=== PATIENT | male | born 1990 | race Caucasian/White ===

== ENCOUNTER 2023-08-20 16:58 | Emergency (ER) | payer SELFPAY ==
[~2023-08-20] VITALS: Ht 175.3 cm; Wt 69.0 kg
[2023-08-20 17:01] VITALS: O2SAT 96
[2023-08-20] MEDS: LEVETIRACETAM 500MG PREMIX 100 ML IV ONE (18:14)
[2023-08-20 18:18] VITALS: BP 129/73; PULSE 71; RESP 14; TEMP 96.4
[2023-08-20 19:09] LABS: ALANINE AMINOTRANSFERASE 29 IU/L (10-49); ALBUMIN 4.7 g/dL (3.2-4.8); ASPARTATE AMINOTRANSFERASE 65 IU/L (<34); BILIRUBIN TOTAL 0.4 mg/dL (0.1-1.0); CALCIUM 7.9 mg/dL (8.7-10.4); CARBON DIOXIDE 28 mEq/L (21-32); CHLORIDE 105 mEq/L (98-107); CREATININE 0.7 mg/dL (0.6-1.3); GLUCOSE 85 mg/dL (70-105); POTASSIUM 4.3 mEq/L (3.5-5.1); PROTEIN TOTAL 7.7 g/dL (6.0-8.3); SODIUM 139 mEq/L (136-145); UREA NITROGEN BLOOD 12 mg/dL (9-23)
[2023-08-20] MEDS ORDERED: ACETAMINOPHEN 325MG TABLET PO ONE (19:45)
[2023-08-20] MEDS ORDERED: LEVE1000 MT (19:46)
[2023-08-20 20:09] LABS: BASOPHILS % 0.5 % (0.0-2.0); EOSINOPHILS % 1.2 % (0.0-5.0); HEMATOCRIT. 38.9 % (42.0-52.0); HEMOGLOBIN. 13.2 g/dL (14.0-18.0); LYMPHOCYTES % 14.6 % (20.0-50.0); MEAN CORPUSCULAR HEMOGLOBIN 30.1 pg (28.0-32.0); MEAN CORPUSCULAR HGB CONC 33.9 g/dL (31.0-37.0); MEAN CORPUSCULAR VOLUME 88.7 fL (80.0-94.0); MEAN PLATELET VOLUME 7.4 fl (7.4-10.4); MONOCYTES % 7.4 % (2.0-8.0); NEUTROPHILS % 76.3 % (40.0-76.0); PLATELET 173 x1000/uL (130-400); RED BLOOD CELL COUNT 4.39 mill/uL (4.7-6.1); RED CELL DISTRIBUTION WIDTH 14.4 % (11.6-14.6); WHITE BLOOD COUNT 7.7 x1000/uL (4.5-11.0)
== END 2023-08-20 19:00 ==
LOC: ER 16:58
DX: R56.9 Unspecified convulsions (principal); Z85.9 Personal history of malignant neoplasm, unspecified
CPT/HCPCS: 99284; 96365; 80053; 85025; 36415; J1953

== ENCOUNTER 2023-09-20 20:17 | Emergency (ER) | payer BC, MEDICAID ==
[~2023-09-20] VITALS: Ht 182.9 cm; Wt 65.0 kg
[~2023-09-20 20:17] MED LIST: LEVE1000 MT
[2023-09-20 20:19] VITALS: O2SAT 97
[2023-09-20 20:47] VITALS: TEMP 98.2
[2023-09-20] MEDS: ACETAMINOPHEN 325MG TABLET PO STA (20:47)
[2023-09-20] MEDS: LEVETIRACETAM 500MG PREMIX 100 ML IV ONE (20:47)
[2023-09-20 21:28] LABS: BASOPHILS % 0.3 % (0.0-2.0); EOSINOPHILS % 1.3 % (0.0-5.0); HEMATOCRIT. 41.9 % (42.0-52.0); HEMOGLOBIN. 14.4 g/dL (14.0-18.0); LYMPHOCYTES % 18.3 % (20.0-50.0); MEAN CORPUSCULAR HEMOGLOBIN 30.9 pg (28.0-32.0); MEAN CORPUSCULAR HGB CONC 34.2 g/dL (31.0-37.0); MEAN CORPUSCULAR VOLUME 90.3 fL (80.0-94.0); MEAN PLATELET VOLUME 7.3 fl (7.4-10.4); MONOCYTES % 7.3 % (2.0-8.0); NEUTROPHILS % 72.8 % (40.0-76.0); PLATELET 243 x1000/uL (130-400); RED BLOOD CELL COUNT 4.64 mill/uL (4.7-6.1); RED CELL DISTRIBUTION WIDTH 13.8 % (11.6-14.6); WHITE BLOOD COUNT 7.6 x1000/uL (4.5-11.0)
[2023-09-20 21:45] LABS: ALANINE AMINOTRANSFERASE 34 IU/L (10-49); ALBUMIN 4.6 g/dL (3.2-4.8); ASPARTATE AMINOTRANSFERASE 36 IU/L (<34); BILIRUBIN TOTAL 0.4 mg/dL (0.1-1.0); CALCIUM 8.6 mg/dL (8.7-10.4); CARBON DIOXIDE 23 mEq/L (21-32); CHLORIDE 106 mEq/L (98-107); CREATININE 0.9 mg/dL (0.6-1.3); GLUCOSE 94 mg/dL (70-105); POTASSIUM 3.9 mEq/L (3.5-5.1); PROTEIN TOTAL 8.4 g/dL (6.0-8.3); SODIUM 137 mEq/L (136-145); UREA NITROGEN BLOOD 9 mg/dL (9-23)
[2023-09-20 22:20] LABS: *AMPHETAMINES SCREEN URINE NEGATIVE (NEGATIVE); *BARBITURATES SCREEN URINE NEGATIVE (NEGATIVE); *BENZODIAZEPINES SCREEN URINE PRESUMPTIVE POSITIVE (NEGATIVE); *COCAINE SCREEN URINE NEGATIVE (NEGATIVE); CANNABINOID URINE SCREEN PRESUMPTIVE POSITIVE (NEGATIVE); ECSTASY MDMA SCREEN URINE NEGATIVE (NEGATIVE); METHADONE URINE SCREEN Pos (NEGATIVE); OPIATES URINE SCREEN NEGATIVE (NEGATIVE); PHENCYCLIDINE URINE SCREEN NEGATIVE (NEGATIVE)
[2023-09-20] MEDS ORDERED: NALO4SPR BOTHNSTRLS (22:22)
[2023-09-20 22:42] VITALS: BP 102/61; PULSE 90; RESP 12
== END 2023-09-20 22:51 | disposition home or self-care (01) ==
LOC: ER 20:17
DX: R56.9 Unspecified convulsions (principal); Z85.9 Personal history of malignant neoplasm, unspecified
CPT/HCPCS: 99285; 96365; 70450; 80053; 80305; 82962; 85025; 36415; J1953

== ENCOUNTER 2024-01-28 19:28 | Emergency (ER) | payer BC, MEDICAID ==
[~2024-01-28] VITALS: Ht 185.4 cm; Wt 68.0 kg
[~2024-01-28 19:28] MED LIST changes: +NALO4SPR BOTHNSTRLS
[2024-01-28 19:36] VITALS: TEMP 97.7; O2SAT 98
[2024-01-28] MEDS ORDERED: MAGNESIUM/ALUMINUM HYDROXIDE/SIMETHICONE 30ML UDC PO STA (19:53)
[2024-01-28] MEDS ORDERED: DICYCLOMINE 10 MG/5 ML ORAL SYR PO STA (19:53)
[2024-01-28 20:20] LABS: BASOPHILS % 0.2 % (0.0-2.0); EOSINOPHILS % 1.2 % (0.0-5.0); HEMATOCRIT. 41.2 % (42.0-52.0); HEMOGLOBIN. 13.9 g/dL (14.0-18.0); MEAN CORPUSCULAR HEMOGLOBIN 30.3 pg (28.0-32.0); MEAN CORPUSCULAR HGB CONC 33.7 g/dL (31.0-37.0); MEAN PLATELET VOLUME 7.4 fl (7.4-10.4); MONOCYTES % 4.9 % (2.0-8.0); NEUTROPHILS % 81.7 % (40.0-76.0); PLATELET 139 x1000/uL (130-400); RED BLOOD CELL COUNT 4.58 mill/uL (4.7-6.1); RED CELL DISTRIBUTION WIDTH 13.8 % (11.6-14.6); WHITE BLOOD COUNT 6.8 x1000/uL (4.5-11.0)
[2024-01-28 20:23] LABS: CLARITY URINE CLOUDY (CLEAR); COLOR URINE DARK YELLOW (YELLOW); GLUCOSE URINE NEGATIVE (NEGATIVE); KETONES URINE 1+ (NEGATIVE); LEUKOCYTE ESTERASE URINE TRACE (NEGATIVE); NITRITE URINE NEGATIVE (NEGATIVE); OCCULT BLOOD URINE NEGATIVE (NEGATIVE); PH URINE 8.5 (4.5-8.0); PROTEIN URINE TRACE (NEGATIVE); SPECIFIC GRAVITY URINE 1.022 (1.005-1.030)
[2024-01-28 20:29] LABS: CHLORIDE 103 mEq/L (98-107); POTASSIUM 3.8 mEq/L (3.5-5.1); SODIUM 139 mEq/L (136-145)
[2024-01-28 20:30] LABS: CALCIUM 9.2 mg/dL (8.7-10.4); CARBON DIOXIDE 29 mEq/L (21-32)
[2024-01-28 20:35] LABS: CREATININE 0.7 mg/dL (0.6-1.3); GLUCOSE 118 mg/dL (70-105); UREA NITROGEN BLOOD 9 mg/dL (9-23)
[2024-01-28 20:37] LABS: ALANINE AMINOTRANSFERASE 205 IU/L (10-49); ALBUMIN 4.6 g/dL (3.2-4.8); ASPARTATE AMINOTRANSFERASE 275 IU/L (<34); BILIRUBIN DIRECT 0.5 mg/dL (<=3.0); BILIRUBIN TOTAL 1.4 mg/dL (0.1-1.0); PROTEIN TOTAL 7.7 g/dL (6.0-8.3)
[2024-01-28 20:38] LABS: PROTHROMBIN TIME 11.6 sec (9.6-11.0)
[2024-01-28 20:47] LABS: ETHANOL BLOOD < 10 mg/dL (<10)
[2024-01-28] MEDS: HALOPERIDOL LACTATE 5MG/ML VIAL IM SCH (20:58)
[2024-01-28] MEDS: ONDANSETRON HCL 4MG/2ML INJ IV STA (20:59)
[2024-01-28] MEDS: SODIUM CHLORIDE 0.9% 1,000 ML IV ONE (21:00)
[2024-01-28] MEDS: FAMOTIDINE 20MG/2ML VIAL IV STA (21:00)
[2024-01-28] MEDS: KETOROLAC 30MG/ML VIAL IV STA (21:00)
[2024-01-28 21:10] LABS: BACTERIA URINE 2+; RBC URINE NONE SEEN /hpf (0-2)
[2024-01-28] MEDS: HALOPERIDOL LACTATE 5MG/ML VIAL IM ONE (21:25)
[2024-01-28] MEDS ORDERED: MAGNESIUM/ALUMINUM HYDROXIDE/SIMETHICONE 30ML UDC PO NR (21:45)
[2024-01-28] MEDS ORDERED: FAMO-135 MT (22:25)
[2024-01-28] MEDS ORDERED: ONDA-239 PO (22:25)
[2024-01-28] MEDS ORDERED: CEFTRIAXONE 2GM/50ML 50 ML IV ONE (22:30)
[2024-01-28 23:10] VITALS: BP 104/65; PULSE 68; RESP 12; O2SAT 99
== END 2024-01-28 23:05 | disposition home or self-care (01) ==
LOC: ER 19:28
DX: K29.70 Gastritis, unspecified, without bleeding (principal); R11.10 Vomiting, unspecified; R56.9 Unspecified convulsions; Z85.9 Personal history of malignant neoplasm, unspecified
CPT/HCPCS: 80076; 80048; 81003; 80320; 83690; 85025; 85610; 36415; 96361; 96372; 96374; 96375; 99284; J0696; J3490; J1630; J1885; J2405; J7030; G0480

== ENCOUNTER 2024-04-21 13:47 | Emergency (ER) | payer MEDICAID ==
[~2024-04-21] VITALS: Ht 185.4 cm; Wt 65.0 kg
[~2024-04-21 13:47] MED LIST changes: +FAMO-135 MT; +ONDA-239 PO
[2024-04-21 13:49] VITALS: BP 120/69; PULSE 78; RESP 18; TEMP 98.6; O2SAT 96
[2024-04-21] MEDS: ONDANSETRON 4MG ODT PO STA (13:53)
[2024-04-21 14:24] LABS: BASOPHILS % 0.7 % (0.0-2.0); EOSINOPHILS % 2.7 % (0.0-5.0); HEMOGLOBIN. 14.1 g/dL (14.0-18.0); LYMPHOCYTES % 29.5 % (20.0-50.0); MEAN CORPUSCULAR HEMOGLOBIN 31.2 pg (28.0-32.0); MEAN CORPUSCULAR HGB CONC 33.6 g/dL (31.0-37.0); MEAN CORPUSCULAR VOLUME 92.8 fL (80.0-94.0); MEAN PLATELET VOLUME 7.2 fl (7.4-10.4); MONOCYTES % 6.5 % (2.0-8.0); NEUTROPHILS % 60.6 % (40.0-76.0); PLATELET 159 x1000/uL (130-400); RED BLOOD CELL COUNT 4.52 mill/uL (4.7-6.1); WHITE BLOOD COUNT 4.4 x1000/uL (4.5-11.0)
[2024-04-21 14:29] LABS: CARBON DIOXIDE 30 mEq/L (21-32); CHLORIDE 107 mEq/L (98-107); POTASSIUM 3.9 mEq/L (3.5-5.1); SODIUM 144 mEq/L (136-145)
[2024-04-21 14:30] LABS: CALCIUM 8.6 mg/dL (8.7-10.4)
[2024-04-21 14:33] LABS: INR 0.9; PROTHROMBIN TIME 10.6 sec (9.6-11.0)
[2024-04-21 14:35] LABS: CREATININE 0.7 mg/dL (0.6-1.3); GLUCOSE 91 mg/dL (70-105); UREA NITROGEN BLOOD 7 mg/dL (9-23)
[2024-04-21 14:44] LABS: ETHANOL BLOOD 300 mg/dL (<10)
== END 2024-04-21 15:33 | disposition left against medical advice (07) ==
LOC: ER 13:47
DX: F10.129 Alcohol abuse with intoxication, unspecified (principal); Z85.9 Personal history of malignant neoplasm, unspecified; Z79.899 Other long term (current) drug therapy; Y90.8 Blood alcohol level of 240 mg/100 ml or more
CPT/HCPCS: 80048; 80320; 85025; 85610; 36415; 99283; Q0162; G0480

== ENCOUNTER 2025-02-22 11:48 | Inpatient (IN) | payer MEDICAID ==
[~2025-02-22] VITALS: Ht 182.9 cm; Wt 77.6 kg
[~2025-02-22 11:48] MED LIST changes: -NALO4SPR BOTHNSTRLS
[2025-02-22 11:59] VITALS: O2SAT 100
[2025-02-22] MEDS: LORAZEPAM 0.5MG TABLET PO ONE (12:30)
[2025-02-22] MEDS: LEVETIRACETAM 1000MG PREMIX 100 ML IV ONE (12:30)
[2025-02-22] MEDS: SODIUM CHLORIDE 0.9% (SEPSIS BOLUS) IV ONE (12:31)
[2025-02-22 12:53] LABS: BASOPHILS % 0.2 % (0.0-2.0); EOSINOPHILS % 0.7 % (0.0-5.0); HEMATOCRIT. 23.7 % (42.0-52.0); HEMOGLOBIN. 7.9 g/dL (14.0-18.0); LYMPHOCYTES % 16.8 % (20.0-50.0); MEAN PLATELET VOLUME 6.9 fl (7.4-10.4); MONOCYTES % 9.1 % (2.0-8.0); NEUTROPHILS % 73.2 % (40.0-76.0); PLATELET 291 x1000/uL (130-400); RED BLOOD CELL COUNT 2.70 mill/uL (4.7-6.1); RED CELL DISTRIBUTION WIDTH 14.3 % (11.6-14.6)
[2025-02-22 13:01] LABS: CREATININE 0.8 mg/dL (0.6-1.3)
[2025-02-22 13:02] LABS: ETHANOL BLOOD < 10 mg/dL (<10); UREA NITROGEN BLOOD 8 mg/dL (9-23)
[2025-02-22 13:03] LABS: ASPARTATE AMINOTRANSFERASE 16 IU/L (<34)
[2025-02-22 13:04] LABS: BILIRUBIN DIRECT < 0.1 mg/dL (<=3.0); BILIRUBIN TOTAL 0.2 mg/dL (0.1-1.0); PROTEIN TOTAL 6.4 g/dL (6.0-8.3)
[2025-02-22 13:07] LABS: INR 1.0
[2025-02-22] MEDS: PIPERACILLIN/TAZO 3.375G/50ML 50 ML IV ONE (13:41)
[2025-02-22] MEDS: VANCOMYCIN 1G PREMIX 200 ML IV ONE (14:36)
[2025-02-22] MEDS: IOHEXOL-300 100 ML BOTTLE ONE (15:27)
[2025-02-22 16:14] LABS: CLARITY URINE CLEAR (CLEAR); COLOR URINE YELLOW (YELLOW); GLUCOSE URINE NEGATIVE (NEGATIVE); KETONES URINE NEGATIVE (NEGATIVE); LEUKOCYTE ESTERASE URINE NEGATIVE (NEGATIVE); NITRITE URINE NEGATIVE (NEGATIVE); OCCULT BLOOD URINE NEGATIVE (NEGATIVE); PH URINE 8.5 (4.5-8.0); PROTEIN URINE NEGATIVE (NEGATIVE); SPECIFIC GRAVITY URINE 1.046 (1.005-1.030); UROBILINOGEN URINE 1.0 E.U./dL (0.2-1.0)
[2025-02-22 16:18] LABS: *AMPHETAMINES SCREEN URINE NEGATIVE (NEGATIVE); *BARBITURATES SCREEN URINE NEGATIVE (NEGATIVE); *BENZODIAZEPINES SCREEN URINE NEGATIVE (NEGATIVE); *COCAINE SCREEN URINE NEGATIVE (NEGATIVE); METHADONE URINE SCREEN Pos (NEGATIVE)
[2025-02-22 16:19] LABS: CANNABINOID URINE SCREEN PRESUMPTIVE POSITIVE (NEGATIVE); ECSTASY MDMA SCREEN URINE NEGATIVE (NEGATIVE); OPIATES URINE SCREEN PRESUMPTIVE POSITIVE (NEGATIVE); PHENCYCLIDINE URINE SCREEN NEGATIVE (NEGATIVE)
[2025-02-22] MEDS ORDERED: ONDANSETRON HCL 4MG/2ML INJ IV PRN (16:30)
[2025-02-22] MEDS ORDERED: ACETAMINOPHEN 325MG TABLET PO PRN (16:30)
[2025-02-22] MEDS ORDERED: CLONIDINE 0.1MG TABLET PO PRN (16:30)
[2025-02-22] MEDS ORDERED: MAGNESIUM/ALUMINUM HYDROXIDE/SIMETHICONE 30ML UDC PO PRN (16:30)
[2025-02-22] MEDS ORDERED: MORPHINE SULFATE 2 MG/ML INJ (NOT FOR IM USE) IV PRN (16:30)
[2025-02-22] MEDS ORDERED: ZOLPIDEM TARTRATE 5MG TABLET PO PRN (16:30)
[2025-02-22 16:44] VITALS: BP 113/54; PULSE 105; RESP 18; TEMP 38.1416
[2025-02-22] MEDS ORDERED: NALOXONE HCL 0.4MG/ML VIAL IV PRN (16:45)
[2025-02-22] MEDS: SODIUM CHLORIDE 0.9% 1,000 ML IV SCH (17:00)
[2025-02-22 17:38] VITALS: BP 113/54; PULSE 105; RESP 18; TEMP 38.1; O2SAT 95
[2025-02-22] MEDS: HYDROCODONE/ACETAMINOPHEN 5/325MG TABLET PO PRN (17:54)
[2025-02-22] MEDS: VANCOMYCIN 500 MG in DEXT 5% WATER 100 ML IV SCH (17:54)
[2025-02-22 20:00] VITALS: BP 125/65; PULSE 98; RESP 18; TEMP 36.2; O2SAT 97
[2025-02-22] MEDS: PIPERACILLIN/TAZO 3.375G/50ML 50 ML IV SCH (21:36)
[2025-02-22] MEDS: VANCOMYCIN 1GM PMX (XELLIA) 200 ML IV SCH (21:37)
[2025-02-22] MEDS: LEVETIRACETAM 500MG TABLET PO SCH (21:38)
[2025-02-22] MEDS: MORPHINE SULFATE 4 MG/ML INJ (FOR IV/IM USE) IV PRN (21:38)
[2025-02-23] VITALS: BP 117/70; PULSE 98; RESP 18; TEMP 36.7; O2SAT 95
[2025-02-23 04:00] VITALS: BP 111/53; PULSE 98; RESP 18; TEMP 36.4; O2SAT 98
[2025-02-23 08:00] VITALS: BP 118/64; PULSE 100; RESP 19; TEMP 36.4; O2SAT 97
[2025-02-23] MEDS: PANTOPRAZOLE SODIUM 40 MG/VIAL IV SCH (08:30)
[2025-02-23] MEDS ORDERED: CLON2TAB11 PO (09:04)
[2025-02-23] MEDS ORDERED: METH10OR11 PO (09:39)
[2025-02-23] MEDS: CLONAZEPAM 1MG TABLET ONE (10:07)
[2025-02-23] MEDS: CLONAZEPAM 1MG TABLET PO SCH (10:10)
[2025-02-23 10:44] LABS: BASOPHILS % 0.5 % (0.0-2.0); EOSINOPHILS % 0.6 % (0.0-5.0); HEMATOCRIT. 22.2 % (42.0-52.0); HEMOGLOBIN. 7.4 g/dL (14.0-18.0); LYMPHOCYTES % 25.2 % (20.0-50.0); MEAN PLATELET VOLUME 6.7 fl (7.4-10.4); MONOCYTES % 11.1 % (2.0-8.0); NEUTROPHILS % 62.6 % (40.0-76.0); PLATELET 248 x1000/uL (130-400); RED BLOOD CELL COUNT 2.53 mill/uL (4.7-6.1); RED CELL DISTRIBUTION WIDTH 14.5 % (11.6-14.6)
[2025-02-23 11:11] LABS: CREATININE 0.7 mg/dL (0.6-1.3); UREA NITROGEN BLOOD 5 mg/dL (9-23)
[2025-02-23 11:27] LABS: INFLUENZA TYPE A Presumptive Negative (Pres. Neg.); INFLUENZA TYPE B Presumptive Negative (Pres. Neg.)
[2025-02-23 11:28] LABS: RESPIRATORY SYNCYTIAL VIRUS Not Detected (Not Detectd)
[2025-02-23 12:00] VITALS: BP 108/64; PULSE 94; RESP 18; TEMP 36.6; O2SAT 100
[2025-02-23] MEDS: METHADONE HCL 10MG TABLET PO SCH (12:00)
[2025-02-23] MEDS: METHADONE HCL 10MG TABLET ONE (12:07)
[2025-02-23] MEDS ORDERED: NON FORMULARY MED XX SCH (13:00)
[2025-02-23] MEDS: IRON SUCROSE COMPLEX 100 MG/5 ML ML IV SCH (15:33)
[2025-02-23 16:00] VITALS: BP 103/62; PULSE 88; RESP 17; TEMP 36.7; O2SAT 96
[2025-02-23 20:00] VITALS: BP 118/65; PULSE 87; RESP 17; TEMP 36.7; O2SAT 95
[2025-02-23] MEDS: ENOXAPARIN 40MG/0.4ML SYR SUBCUT SCH (21:00)
[2025-02-24] VITALS: BP 104/64; PULSE 87; RESP 17; RESP 18; TEMP 36.6; O2SAT 99
[2025-02-24 04:00] VITALS: BP_SYST 104; BP_SYST 105; BP_DIAS 56; BP_DIAS 64; PULSE 85; PULSE 87; RESP 17; TEMP 36.6; O2SAT 99
[2025-02-24 08:00] VITALS: BP 112/70; PULSE 95; RESP 17; TEMP 36.6; O2SAT 95
[2025-02-24 20:00] VITALS: BP 113/64; PULSE 90; RESP 18; TEMP 36.6; O2SAT 96
[2025-02-25] MEDS: METHIMAZOLE 5MG TABLET PO SCH (01:34)
[2025-02-25 06:59] VITALS: BP 100/58; PULSE 89; RESP 18; O2SAT 98
[2025-02-25 07:50] LABS: BASOPHILS % 0.5 % (0.0-2.0); EOSINOPHILS % 5.9 % (0.0-5.0); HEMATOCRIT. 28.3 % (42.0-52.0); HEMOGLOBIN. 9.3 g/dL (14.0-18.0); LYMPHOCYTES % 37.5 % (20.0-50.0); MEAN PLATELET VOLUME 7.0 fl (7.4-10.4); MONOCYTES % 7.9 % (2.0-8.0); NEUTROPHILS % 48.2 % (40.0-76.0); PLATELET 352 x1000/uL (130-400); RED BLOOD CELL COUNT 3.24 mill/uL (4.7-6.1); RED CELL DISTRIBUTION WIDTH 14.5 % (11.6-14.6)
[2025-02-25 08:00] VITALS: BP 100/62; PULSE 78; RESP 18; TEMP 36.7; O2SAT 98
[2025-02-25 08:12] LABS: CREATININE 0.7 mg/dL (0.6-1.3); UREA NITROGEN BLOOD < 5 mg/dL (9-23)
[2025-02-25] MEDS ORDERED: FAMOTIDINE 20MG TABLET PO SCH (09:00)
== END 2025-02-25 09:40 | disposition left against medical advice (07) | DRG 721 ==
LOC: ER 12:20 → 8WST 14:46 → EDBEDREQTM 14:56 → EDBEDREQ 14:56
PROVIDERS: ADMIT Internal Medicine; ATTEND Internal Medicine
DX: T81.40XA Infection following a procedure, unspecified, initial encounter (principal); D64.9 Anemia, unspecified; F11.20 Opioid dependence, uncomplicated; L02.11 Cutaneous abscess of neck; G40.909 Epilepsy, unspecified, not intractable, without status epilepticus; Z20.822 Contact with and (suspected) exposure to COVID-19; Z53.29 Procedure and treatment not carried out because of patient's decision for other reasons; Y83.8 Other surgical procedures as the cause of abnormal reaction of the patient, or of later complication, without mention of misadventure at the time of the procedure; Y92.89 Other specified places as the place of occurrence of the external cause; Z91.011 Allergy to milk products; Z79.899 Other long term (current) drug therapy
CPT/HCPCS: 36415; 70491; 71045; 80048; 80076; 80305; 80320; 81003; 83605; 84145; 84443; 85025; 87420; 87426; 87804; 93005; 96365; 96367; 99285; A4606; J1650; J1953; J2270; J2470; J2543; J3373; J7030; J7060; Q9967; G0480

== ENCOUNTER 2025-03-15 19:23 | Inpatient (IN) | payer SELFPAY ==
[~2025-03-15] VITALS: Ht 185.4 cm; Wt 72.6 kg
[2025-03-15] MEDS: SODIUM CHLORIDE 0.45% 1,000 ML IV SCH
[~2025-03-15 19:23] MED LIST changes: +CLON2TAB11 PO; +METH10OR11 PO
[2025-03-15 19:33] VITALS: O2SAT 98
[2025-03-15] MEDS: SODIUM CHLORIDE 0.9% (SEPSIS BOLUS) IV ONE (20:11)
[2025-03-15] MEDS: PIPERACILLIN/TAZO 3.375G/50ML 50 ML IV ONE (20:19)
[2025-03-15 20:22] LABS: BASOPHILS % 1.5 % (0.0-2.0); EOSINOPHILS % 4.7 % (0.0-5.0); HEMATOCRIT. 28.2 % (42.0-52.0); HEMOGLOBIN. 9.3 g/dL (14.0-18.0); LYMPHOCYTES % 29.5 % (20.0-50.0); MEAN PLATELET VOLUME 7.2 fl (7.4-10.4); MONOCYTES % 7.2 % (2.0-8.0); NEUTROPHILS % 57.1 % (40.0-76.0); PLATELET 204 x1000/uL (130-400); RED BLOOD CELL COUNT 3.35 mill/uL (4.7-6.1); RED CELL DISTRIBUTION WIDTH 14.4 % (11.6-14.6)
[2025-03-15 20:33] LABS: INR 1.0
[2025-03-15 20:36] LABS: CREATININE 0.8 mg/dL (0.6-1.3); UREA NITROGEN BLOOD 6 mg/dL (9-23)
[2025-03-15 20:37] LABS: ASPARTATE AMINOTRANSFERASE 31 IU/L (<34)
[2025-03-15 20:38] LABS: BILIRUBIN DIRECT < 0.1 mg/dL (<=3.0); BILIRUBIN TOTAL 0.3 mg/dL (0.1-1.0); PROTEIN TOTAL 7.8 g/dL (6.0-8.3)
[2025-03-15] MEDS: VANCOMYCIN 1G PREMIX 200 ML IV ONE (21:18)
[2025-03-15] MEDS ORDERED: IPRATROPIUM/ALBUTEROL 0.5-3(2.5)MG/3ML NEB HHN PRN (22:00)
[2025-03-15] MEDS ORDERED: CLONIDINE 0.1MG TABLET PO PRN (22:00)
[2025-03-15] MEDS ORDERED: ACETAMINOPHEN 325MG TABLET PO PRN ×2 (22:00)
[2025-03-15] MEDS ORDERED: GUAIFENESIN 200MG/10ML SUGAR FREE UDC PO PRN (22:00)
[2025-03-15] MEDS ORDERED: ONDANSETRON HCL 4MG/2ML INJ IV PRN (22:00)
[2025-03-15] MEDS ORDERED: DOCUSATE SODIUM 100MG CAPSULE PO PRN (22:00)
[2025-03-15] MEDS ORDERED: MAGNESIUM/ALUMINUM HYDROXIDE/SIMETHICONE 30ML UDC PO PRN (22:00)
[2025-03-16] VITALS: BP 110/63; PULSE 80; RESP 17; TEMP 37.3; O2SAT 99
[2025-03-16 00:30] VITALS: BP 105/73; PULSE 81; RESP 16; TEMP 37.3076
[2025-03-16] MEDS: HYDROCODONE/ACETAMINOPHEN 5/325MG TABLET PO PRN (01:04)
[2025-03-16] MEDS: VANCOMYCIN 1GM/200ML PMX (BAXTER) IV SCH (02:35)
[2025-03-16 04:00] VITALS: BP 100/63; PULSE 68; RESP 22; TEMP 36.6; O2SAT 94
[2025-03-16 06:35] LABS: BASOPHILS % 0.6 % (0.0-2.0); EOSINOPHILS % 6.6 % (0.0-5.0); HEMATOCRIT. 27.9 % (42.0-52.0); HEMOGLOBIN. 9.1 g/dL (14.0-18.0); LYMPHOCYTES % 34.0 % (20.0-50.0); MEAN PLATELET VOLUME 7.3 fl (7.4-10.4); MONOCYTES % 8.0 % (2.0-8.0); NEUTROPHILS % 50.8 % (40.0-76.0); PLATELET 203 x1000/uL (130-400); RED BLOOD CELL COUNT 3.32 mill/uL (4.7-6.1); RED CELL DISTRIBUTION WIDTH 14.7 % (11.6-14.6)
[2025-03-16 06:50] LABS: CREATININE 0.7 mg/dL (0.6-1.3); TRIGLYCERIDE 96 mg/dL (0-150)
[2025-03-16 06:51] LABS: LDL CHOLESTEROL 149 mg/dL (5-100); UREA NITROGEN BLOOD 5 mg/dL (9-23)
[2025-03-16 06:55] LABS: T4 FREE 1.03 ng/dL (0.89-1.76)
[2025-03-16 08:00] VITALS: BP 101/65; PULSE 72; RESP 12; TEMP 36.4; O2SAT 97
[2025-03-16] MEDS ORDERED: IOHEXOL-300 100 ML BOTTLE ONE (08:10)
[2025-03-16 08:31] LABS: FOLIC ACID (FOLATE) SERUM 8.62 ng/mL (>5.38)
[2025-03-16 08:32] LABS: VITAMIN B12 SERUM 341 pg/mL (211-911)
[2025-03-16] MEDS: MORPHINE SULFATE 4 MG/ML INJ (FOR IV/IM USE) IV ONE (10:30)
[2025-03-16] MEDS: FAMOTIDINE 20MG TABLET PO SCH (10:40)
[2025-03-16] MEDS: LEVETIRACETAM 500MG/5ML CUP PO SCH (10:40)
[2025-03-16] MEDS: ENOXAPARIN 40MG/0.4ML SYR SUBCUT SCH (10:41)
[2025-03-16 12:00] VITALS: BP 99/63; PULSE 64; RESP 13; TEMP 36.8; O2SAT 97
[2025-03-16 12:35] LABS: HEPATITIS C AB NON REACTIVE (Neg) (Negative)
[2025-03-16] MEDS ORDERED: CLINDAMYCIN 900MG PREMIX 50 ML IV SCH (13:00)
[2025-03-16] MEDS: CLONAZEPAM 1MG TABLET PO NR (13:12)
[2025-03-16] MEDS ORDERED: METHADONE HCL 10MG TABLET PO SCH (14:00)
== END 2025-03-16 17:54 | disposition left against medical advice (07) | DRG 383 ==
LOC: ER 19:23 → EDBEDREQTM 22:06 → EDBEDREQ 22:06 → ENRESERV 22:37 → 3WST 23:04
PROVIDERS: ADMIT Internal Medicine; ATTEND Internal Medicine
DX: L03.221 Cellulitis of neck (principal); D64.9 Anemia, unspecified; E78.5 Hyperlipidemia, unspecified; F90.9 Attention-deficit hyperactivity disorder, unspecified type; E61.1 Iron deficiency; Z55.6 Problems related to health literacy; Z91.199 Patient's noncompliance with other medical treatment and regimen due to unspecified reason; Z53.29 Procedure and treatment not carried out because of patient's decision for other reasons
CPT/HCPCS: 36415; 70491; 71045; 80048; 80061; 80076; 80320; 82550; 82607; 82728; 82746; 83540; 83550; 83605; 84145; 84439; 84443; 85025; 86705; 87070; 87077; 87186; 87340; 93005; 96361; 96365; 96367; 99291; A4606; J0690; J1650; J2543; J3373; J3490; J7030; Q9967; G0480